=== PATIENT | male | born 1990 | race Caucasian/White ===

== ENCOUNTER 2021-12-14 23:33 | Emergency (ER) | payer OTHER | END 2021-12-15 01:00 | disposition home or self-care (01) | LOC: FER 23:33 | DX: S01.01XA Laceration without foreign body of scalp, initial encounter (principal); Z88.0 Allergy status to penicillin; W22.8XXA Striking against or struck by other objects, initial encounter; Y92.009 Unspecified place in unspecified non-institutional (private) residence as the place of occurrence of the external cause ==